=== PATIENT | female | born 1980 | race Caucasian/White ===

== ENCOUNTER 2019-10-18 11:46 | Emergency (ER) | payer OTHER ==
[~2019-10-18] VITALS: Ht 170.2 cm; Wt 64.1 kg
[2019-10-18 13:42] LABS: BASOPHILS # (AUTO) 0.06 x10^3/uL (0-0.1); BASOPHILS % (AUTO) 1 % (0-1); EOSINOPHILS # (AUTO) 0.21 x10^3/uL (0-0.4); EOSINOPHILS % (AUTO) 3 % (1-7); LYMPHOCYTES # (AUTO) 2.51 x10^3/uL (1-3.4); LYMPHOCYTES % (AUTO) 29 % (22-44); MD NO; MEAN CORPUSCULAR HEMOGLOBIN 30.5 pg (27.0-34.8); MEAN CORPUSCULAR HGB CONC 33.8 g/dL (32.4-35.8); MEAN CORPUSCULAR VOLUME 90.2 fL (80-100); MEAN PLATELET VOLUME 9.5 fL (7.4-10.4); MONOCYTES # (AUTO) 0.49 x10^3/uL (0.2-0.8); MONOCYTES % (AUTO) 6 % (2-9); NEUTROPHILS % (AUTO) 62 % (42-75); PLATELET COUNT 216 x10^3/uL (130-400); RED BLOOD COUNT 4.68 x10^6/uL (3.82-5.3); RED CELL DISTRIBUTION WIDTH 12.4 % (9.6-15.2)
[2019-10-18 13:52] LABS: ALBUMIN 3.9 g/dL (3.4-5.0); ANION GAP 7 mmol/L (5-15); CALCIUM 8.9 mg/dL (8.5-10.1); CHLORIDE 109 mmol/L (98-107)
[2019-10-18 13:56] LABS: ALANINE AMINOTRANSFERASE 47 U/L (12-78); ALKALINE PHOSPHATASE 69 U/L (45-117); BILIRUBIN,TOTAL 0.4 mg/dL (0.2-1.0); CREATININE 0.64 mg/dL (0.55-1.02); TOTAL PROTEIN 7.4 g/dL (6.4-8.2)
--- NOTE | 2019-10-18 16:28 | NUR ---
TO ROOM FROM LOBBY. NAD.
--- NOTE | 2019-10-18 16:37 | NUR ---
TASK RN: PT PRESENTING TO ER FOR GERNALIZED FATIGUE FOR 1.5 WEEKS, STATES VAGINAL SPOTTING, HX OF HYSTERECTOMY. SENT FROM DX WITH A UTI. PT ALSO C/O LUMP TO RIGHT SIDE OF THROAT, NOT CAUSING PAIN. VSS AT THIS TIME. FAMILY AT BEDSIDE. CALL LIGHT WITHIN REACH. PIT ORDERS PROCESSING. AWAITING FURTHER ORDERS AT THIS TIME
[2019-10-18 16:41] VITALS: BP 129/79
== END 2019-10-18 18:20 | disposition home or self-care (01) ==
LOC: ED 17:45
DX: N93.9 Abnormal uterine and vaginal bleeding, unspecified (principal); N30.01 Acute cystitis with hematuria
CPT/HCPCS: 36415; 76830; 80053; 85025; 99284

== ENCOUNTER 2020-01-15 09:47 | Emergency (ER) | payer OTHER ==
[~2020-01-15] VITALS: Ht 167.6 cm; Wt 60.2 kg
--- NOTE | 2020-01-15 10:09 | NUR ---
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 TAYLER
--- NOTE | 2020-01-15 10:15 | NUR ---
assumed care of pt. pt presents c/o feeling dizzy. pt reports that she has been having near syncopal episodes for a while at home. reports that she is scheduled for a holter monitor placement, but is waiting for her cardiology appointment. pt reports that she woke up this AM and is having some numbness to L hand 3rd 4th and 5th fingers that goes up her L arm. able to GARCÍA without difficulty. A&O x4. no facial droop, no loss or change of conciousness. texting on her cell phone. no family at bedside
[2020-01-15] MEDS ORDERED: NITR100C56 PO (10:27)
--- NOTE | 2020-01-15 10:37 | NUR ---
warm blankets given. resting in position of comfort
--- NOTE | 2020-01-15 11:20 | NUR ---
pt in RAD
[2020-01-15 11:25] LABS: BASOPHILS # (AUTO) 0.02 x10^3/uL (0-0.1); BASOPHILS % (AUTO) 0 % (0-1); EOSINOPHILS # (AUTO) 0.04 x10^3/uL (0-0.4); EOSINOPHILS % (AUTO) 1 % (1-7); LYMPHOCYTES # (AUTO) 1.75 x10^3/uL (1-3.4); LYMPHOCYTES % (AUTO) 29 % (22-44); MD NO; MEAN CORPUSCULAR HEMOGLOBIN 30.3 pg (27.0-34.8); MEAN CORPUSCULAR VOLUME 89.1 fL (80-100); MEAN PLATELET VOLUME 9.7 fL (7.4-10.4); MONOCYTES # (AUTO) 0.31 x10^3/uL (0.2-0.8); MONOCYTES % (AUTO) 5 % (2-9); NEUTROPHILS # (AUTO) 3.99 x10^3/uL (1.8-6.8); NEUTROPHILS % (AUTO) 65 % (42-75); PLATELET COUNT 227 x10^3/uL (130-400); RED CELL DISTRIBUTION WIDTH 12.2 % (9.6-15.2)
[2020-01-15 11:37] LABS: ALBUMIN 3.9 g/dL (3.4-5.0); ANION GAP 7 mmol/L (5-15); CALCIUM 8.9 mg/dL (8.5-10.1); CHLORIDE 108 mmol/L (98-107)
[2020-01-15 11:43] LABS: ALANINE AMINOTRANSFERASE 35 U/L (12-78); ALKALINE PHOSPHATASE 62 U/L (45-117); BILIRUBIN,TOTAL 0.7 mg/dL (0.2-1.0); CREATININE 0.61 mg/dL (0.55-1.02); TOTAL PROTEIN 7.4 g/dL (6.4-8.2); TROPONIN I < 0.015 ng/mL (0.000-0.045)
--- NOTE | 2020-01-15 11:55 | NUR ---
Meagan MONIQUE notified that pt is currently undergoing tx for UTI, per ENEIDA no urine sample needed at this time
[2020-01-15] MEDS ORDERED: SODIUM CHLORIDE FLUSH 10ML SYR IVF ONE (12:00)
[2020-01-15] MEDS ORDERED: DIPHENHYDRAMINE 50 MG/ML, 1ML IVPush ONE (12:00)
[2020-01-15] MEDS ORDERED: METOCLOPRAMIDE 5 MG/ML, 2ML IVPush ONE (12:00)
--- NOTE | 2020-01-15 12:05 | NUR ---
pt notified that she is to be medicated. pt reports that she did not drive here
[2020-01-15] MEDS ORDERED: METOCLOPRAMIDE 5 MG/ML, 2ML ONE (12:13)
[2020-01-15] MEDS ORDERED: DIPHENHYDRAMINE 50 MG/ML, 1ML ONE (12:13)
[2020-01-15] MEDS ORDERED: KETOROLAC 30 MG/1 ML IVPush ONE (12:30)
[2020-01-15] MEDS ORDERED: KETOROLAC 30 MG/1 ML ONE (13:34)
--- NOTE | 2020-01-15 14:39 | NUR ---
report esther Saul RN for lunch
[2020-01-15 14:48] VITALS: BP 107/75
== END 2020-01-15 14:50 | disposition home or self-care (01) ==
LOC: ED 10:44
DX: G43.909 Migraine, unspecified, not intractable, without status migrainosus (principal); R07.89 Other chest pain; R51 Headache; J45.909 Unspecified asthma, uncomplicated; Z90.710 Acquired absence of both cervix and uterus
CPT/HCPCS: 36415; 70450; 80053; 84484; 85025; 93005; 96374; 96375; 99285; J1885; J2765

== ENCOUNTER 2020-10-19 09:32 | Emergency (ER) | payer OTHER ==
[~2020-10-19] VITALS: Ht 170.2 cm; Wt 50.3 kg
[~2020-10-19 09:32] MED LIST: NITR100C56 PO
[2020-10-19 10:24] LABS: BASOPHILS % (AUTO) 0 % (0-1); EOSINOPHILS % (AUTO) 0 % (1-7); LYMPHOCYTES % (AUTO) 13 % (22-44); MEAN CORPUSCULAR HEMOGLOBIN 30.8 pg (27.0-34.8); MEAN CORPUSCULAR HGB CONC 35.3 g/dL (32.4-35.8); MEAN PLATELET VOLUME 8.6 fL (7.4-10.4); MONOCYTES % (AUTO) 7 % (2-9); NEUTROPHILS % (AUTO) 79 % (42-75); PLATELET COUNT 199 x10^3/uL (130-400); RED BLOOD COUNT 4.79 x10^6/uL (3.82-5.3); RED CELL DISTRIBUTION WIDTH 12.6 % (9.6-15.2)
[2020-10-19 10:26] LABS: MD NO
--- NOTE | 2020-10-19 10:27 | NUR ---
LAB IN ROOM.
[2020-10-19 10:34] LABS: ALBUMIN 3.7 g/dL (3.4-5.0); ANION GAP 6 mmol/L (5-15); CALCIUM 9.2 mg/dL (8.5-10.1); CHLORIDE 102 mmol/L (98-107); CREATININE 0.55 mg/dL (0.55-1.02)
--- NOTE | 2020-10-19 10:39 | NUR ---
FIRST CONTACT W/ PT. THIS IS A 40 YO F REF BY ENT FOR POST TONISLECTOMY AND SINUS SURGERY BLEEDING. OPERATION WAS 2 DAYS AGO. PT REPORTS HX OF BLOOD TRANSFUSION POST CHILD . PT RESTING ON GURNEY W/ CALL LIGHT IN REACH AND SIDE RAILS UPX2. RESP EVEN AND UNLABORED, NADN. AWAITING LAB RESULTS.
--- NOTE | 2020-10-19 10:45 | NUR ---
ALL TESTS RESULTED. PT IS UP FOR RECHECK AT THIS TIME.
[2020-10-19 11:00] VITALS: BP 115/76
[2020-10-19] MEDS ORDERED: HYDROmorphone 1 MG/ML, 1ML INJ ONE (11:06)
--- NOTE | 2020-10-19 11:11 | NUR ---
ENT IN ROOM.
--- NOTE | 2020-10-19 11:17 | NUR ---
MED DAYNA FROM PHARMACY.
[2020-10-19] MEDS ORDERED: HYDROmorphone 1 MG/ML, 1ML INJ IM ONE (11:30)
[2020-10-19] MEDS ORDERED: LIDOCAINE 1%-EPI 1:100K, 20ML INFIL ONE (11:30)
[2020-10-19] MEDS ORDERED: LIDOCAINE 1%-EPI 1:100K, 30ML INFIL ONE (11:30)
--- NOTE | 2020-10-19 11:35 | NUR ---
PT REPORTS RELIEF IN PAIN AFTER MEDS.
--- NOTE | 2020-10-19 11:48 | NUR ---
ENT IN ROOM FOR INJECTION.
== END 2020-10-19 12:54 | disposition home or self-care (01) ==
LOC: ED 10:56
DX: L76.22 Postprocedural hemorrhage of skin and subcutaneous tissue following other procedure (principal); R00.0 Tachycardia, unspecified; G43.909 Migraine, unspecified, not intractable, without status migrainosus; J45.909 Unspecified asthma, uncomplicated; Z90.710 Acquired absence of both cervix and uterus; Z88.0 Allergy status to penicillin; Z88.2 Allergy status to sulfonamides
CPT/HCPCS: 36415; 80048; 82040; 85025; 86850; 86900; 96372; 99283; J1170

== ENCOUNTER 2021-05-11 13:44 | Emergency (ER) | payer SELFPAY ==
[~2021-05-11] VITALS: Ht 167.6 cm; Wt 48.9 kg
--- NOTE | 2021-05-11 14:53 | NUR ---
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
--- NOTE | 2021-05-11 14:57 | NUR ---
PT AMBULATED STEADILY BACK TO ROOM FROM LOBBY. NAD NOTED.
--- NOTE | 2021-05-11 15:16 | NUR ---
FIRST CONTACT WITH PT. PT UPRIGHT IN [facility], MAGALIE NOTED. W C/O INTERMITTENT PALPITATIONS AND SOB "MY HEART WILL JUST RACE SOME TIMES" "I WOKE UP IN THE MIDDLE OF THE NIGHT FEELING SHORT OF BREATH". POSITIVE COVID TEST YESTERDAY, SYMPTOMS BEGAN WEDNESDAY. REPORTS FEELING SHORT OF BREATH, RR 16; SPO2 95% RA, HR 90'S. NO ACCESSORY MUSCLE USE OR TRIPODING NOTED. PT SPEAKING IN FULL SENTENCES WO DIFFICULTY. BP/SPO2/ECG MONITORING IN PLACE. NSR ON MONITOR.
[2021-05-11] MEDS ORDERED: DEXAMETHASONE 4 MG TABLET PO ONE (15:30)
[2021-05-11] MEDS ORDERED: LORazepam 1MG TABLET PO ONE (15:30)
[2021-05-11] MEDS ORDERED: LORazepam 1MG TABLET ONE (15:41)
[2021-05-11 16:12] LABS: BASOPHILS % (AUTO) 0 % (0-1); EOSINOPHILS % (AUTO) 0 % (1-7); LYMPHOCYTES % (AUTO) 27 % (22-44); MEAN CORPUSCULAR HGB CONC 35.8 g/dL (32.4-35.8); MEAN PLATELET VOLUME 9.3 fL (7.4-10.4); MONOCYTES % (AUTO) 9 % (2-9); NEUTROPHILS % (AUTO) 63 % (42-75); PLATELET COUNT 126 x10^3/uL (130-400); RED BLOOD COUNT 5.15 x10^6/uL (3.82-5.3); RED CELL DISTRIBUTION WIDTH 12.9 % (9.6-15.2)
[2021-05-11 16:15] LABS: ALBUMIN 3.6 g/dL (3.4-5.0); ANION GAP 6 mmol/L (5-15); CALCIUM 8.4 mg/dL (8.5-10.1); CHLORIDE 104 mmol/L (98-107); CREATININE 0.47 mg/dL (0.55-1.02)
[2021-05-11 16:53] VITALS: BP 115/70
--- NOTE | 2021-05-11 16:53 | NUR ---
PT REPORTS IMPROVED S/S WITH MEDICATIONS. PT UPDATED TO POC (RECHECK/DISPO) AND DEMONSTRATES UNDERSTANDING.
--- NOTE | 2021-05-11 18:03 | NUR ---
DC EDUCATION PROVIDED, PT DEMONSTRATES UNDERSTANDING. PT AMBULATED STEADILY TO DC WITH RN
== END 2021-05-11 18:05 | disposition home or self-care (01) ==
LOC: ED 17:55
DX: U07.1 COVID-19 (principal); J06.9 Acute upper respiratory infection, unspecified; J45.909 Unspecified asthma, uncomplicated; R11.10 Vomiting, unspecified; R06.02 Shortness of breath
CPT/HCPCS: 36415; 71045; 80048; 82040; 83880; 85025; 93005; 99285